=== PATIENT | male | born 1970 ===

== ENCOUNTER 2018-05-23 12:48 | Inpatient (IN) | payer OTHER ==
[~2018-05-23] VITALS: Ht 167.6 cm; Wt 81.6 kg
[2018-05-23] MEDS ORDERED: RELAFEN PO (13:15)
[2018-05-23] MEDS ORDERED: GABAPENTIN800 MG PO (13:16)
[2018-05-23] MEDS ORDERED: TRAMADOL HCL50 MG PO (13:16)
[2018-05-23] MEDS ORDERED: ZANTAC150 M3 PO (13:17)
[2018-06-05] MEDS ORDERED: DOCUSATE SODIU100 MG PO (08:09)
[2018-06-05] MEDS ORDERED: PERCOCET 5-3251 EACH PO (08:10)
[2018-06-05] MEDS ORDERED: CLONAZEPAM1 MG PO (08:10)
== END 2018-06-05 14:44 | disposition home or self-care (01) | DRG 454 ==
LOC: O/R 06-04 05:01 → PED 06-04 05:01 → SURH 06-04 07:00 → PED 06-04 10:01
PROVIDERS: Orthopaedic Surgery Orthopaedic Surgery of the Spine
PROC: 0RG2071 Fusion of 2 or more Cervical Vertebral Joints with Autologous Tissue Substitute, Posterior Approach, Posterior Column, Open Approach (ICD-10-PCS; 2018-06-04)
PROC: 0RT30ZZ Resection of Cervical Vertebral Disc, Open Approach (ICD-10-PCS; 2018-06-04)
PROC: 07DS3ZZ Extraction of Vertebral Bone Marrow, Percutaneous Approach (ICD-10-PCS; 2018-06-04)
PROC: 0RG20A0 Fusion of 2 or more Cervical Vertebral Joints with Interbody Fusion Device, Anterior Approach, Anterior Column, Open Approach (ICD-10-PCS; principal; 2018-06-04 07:00)
DX: M47.12 Other spondylosis with myelopathy, cervical region (principal); M50.01 Cervical disc disorder with myelopathy, high cervical region

== ENCOUNTER 2023-08-24 07:26 | Inpatient (IN) | payer OTHER ==
[~2023-08-24] VITALS: Ht 167.6 cm; Wt 77.1 kg
[~2023-08-24 07:26] MED LIST: CLONAZEPAM1 MG PO; DOCUSATE SODIU100 MG PO; GABAPENTIN800 MG PO; PERCOCET 5-3251 EACH PO; RELAFEN PO; TRAMADOL HCL50 MG PO; ZANTAC150 M3 PO
[2023-08-24] MEDS ORDERED: COZAAR50 MG PO (08:20)
[2023-08-24] MEDS ORDERED: TRAMAD PO (08:20)
[2023-08-28] MEDS ORDERED: AMOX-CLAV 875-1 EACH PO (09:34)
[2023-08-28] MEDS ORDERED: PERCOCET 5-3251 EACH PO (09:34)
[2023-08-28] MEDS ORDERED: COLACE100 MG PO (09:35)
[2023-08-28] MEDS ORDERED: MEDROLPACK PO (09:35)
[2023-08-28] MEDS ORDERED: NEURONTIN800 MG PO (09:36)
[2023-08-28] MEDS ORDERED: GABAPENTIN100 M2 PO (09:36)
[2023-08-29 06:24] LABS: HEMATOCRIT 38.2 % (39.0-48.0); MEAN CELL VOLUME 99.9 fL (80.0-100.00); MEAN CORPUSCULAR HEMOGLOBIN 34.1 pg (27.00-32.0); MEAN CORPUSCULAR HGB CONC 34.1 g/dl (32.0-36.0); PLATELET COUNT 194 K/uL (150-450); RED BLOOD COUNT 3.82 M/uL (4.00-6.00); RED CELL DISTRIBUTION WIDTH 13.9 % (11.5-14.5)
[2023-08-29 06:52] LABS: CALCIUM 8.3 mg/dL (8.5-10.1); CREATININE SERUM 0.74 mg/dL (0.70-1.30); GFR 111.07; POTASSIUM 4.34 mEq/L (3.5-5.1)
== END 2023-08-29 18:15 | disposition home or self-care (01) | DRG 455 ==
LOC: O/R 08-28 06:23 → SURH 08-28 08:15
PROVIDERS: ADMIT Orthopaedic Surgery Orthopaedic Surgery of the Spine; ATTEND Orthopaedic Surgery Orthopaedic Surgery of the Spine
PROC: 0SG3071 Fusion of Lumbosacral Joint with Autologous Tissue Substitute, Posterior Approach, Posterior Column, Open Approach (ICD-10-PCS; 2023-08-28)
PROC: 0QB30ZZ Excision of Left Pelvic Bone, Open Approach (ICD-10-PCS; 2023-08-28)
PROC: 0ST40ZZ Resection of Lumbosacral Disc, Open Approach (ICD-10-PCS; 2023-08-28)
PROC: 07DR0ZZ Extraction of Iliac Bone Marrow, Open Approach (ICD-10-PCS; 2023-08-28)
PROC: 4A1104G Monitoring of Peripheral Nervous Electrical Activity, Intraoperative, Open Approach (ICD-10-PCS; 2023-08-28)
PROC: 0SG30A0 Fusion of Lumbosacral Joint with Interbody Fusion Device, Anterior Approach, Anterior Column, Open Approach (ICD-10-PCS; principal; 2023-08-28 16:00)
DX: M48.07 Spinal stenosis, lumbosacral region (principal); M43.17 Spondylolisthesis, lumbosacral region; M54.17 Radiculopathy, lumbosacral region